=== PATIENT | female | born 1945 | race Caucasian/White ===

== ENCOUNTER 2018-11-13 07:29 | Observation (INO) | payer OTHER ==
--- NOTE | 2018-11-12 16:32 | RAD REPORT ---
EXAM DESCRIPTION: Kevin Rodrigues (2 Views)11/12/2018 4:24 pm CLINICAL HISTORY: Preop for abdominal hernia repair COMPARISON: None FINDINGS: The lungs appear clear of acute infiltrate. The heart is normal size IMPRESSION: No acute abnormalities displayed
--- OUTSIDE RECORDS SUMMARY | 2018-11-13 07:39 | XMS REPORT | Encounter Summary ---
:1945 Author Care Team Providers Name Role Phone Fletcher Reina MD Primary Care Provider [phone] Reason for Visit Follow Up Visit Instructions 1. Sinusitis 2. Deviated nasal septum 3. Hypertrophy of nasal turbinates 4. Nasal obstruction 5. Allergic rhinitis 6. Otalgia tympanogram 7. Conductive hearing loss Discussion Note: None recorded.Patient educational handouts: No information available. Plan of Care Patient Instructions Patient discharged with the following instructions per Dr. Acosta Patient is to keep the ears dry while showering no water or shampoo Along with using Vinegar or Ciprodex ear drops as directed Follow up in 4-5 months If any other problem patient is to call the office Patient verbalized understanding the instructions given along with my office nurse Radha Cardoso Provider Appointments Follow up Odell Acosta, 07/01/2018 1:30PM Lab None recorded. Referral None recorded. Procedures None recorded. Surgeries None recorded. Imaging Tympanogram In-House Results 02/11/2018 Medications Name Start Date Co Q-10 100 mg capsule Take 1 capsule every day by oral route with meals. Evening Homer 500 mg capsule Take 1 capsule every day by oral route in the morning. Fluzone High-Dose 6934-8323 (PF) 180 mcg/0.5 mL intramuscular syringe ketoconazole 2 % topical cream magnesium nabumetone 750 mg tablet olopatadine 0.2 % eye drops Pneumovax 23 25 mcg/0.5 mL injection syringe ProAir HFA 90 mcg/actuation aerosol inhaler progesterone Preogesterone SR 25 mg compounded ranitidine 150 mg tablet Restasis 0.05 % eye drops in a dropperette Shingrix (PF) 50 mcg/0.5 mL intramuscular suspension, kit Suprep Bowel Prep Kit 17.5 gram-3.13 gram-1.6 gram oral solution tizanidine 4 mg tablet triamcinolone acetonide 0.1 % topical cream turmeric (bulk) Medications Administered None recorded. Vitals Height Weight BMI Blood Pressure 5 ft 2 in 200 lbs 36.6 kg/m2 Lab Results Date Name Specimen Result Interpretation Description Value Range Status Address 02/11/2018 Tympanogram Right Type B In-House Curve Flat Results: For Internal Use Only Left Type A In-House Normal Results: For Internal Use Only Allergies Code Code System Name Reaction Severity Status Onset 29043 RxNorm Neosporin Rash Mild Active (Blb-[id number]-[id number]) Problems Name Status Onset Date Source Debris in Ear Canal Active Encounter Chronic Serous Otitis Media Active Otitis Media Active Encounter Otalgia Active Encounter Conductive Hearing Loss Active Nasal Obstruction Active Encounter Dizziness Active Encounter Choking Active Encounter Difficulty Swallowing Active Encounter Hypertrophy of Nasal Turbinates Active Encounter Procedures Date Name Performed by 12/08/2005 Ear Tube Information not available 01/30/2004 Ear Surgery Information not available 12/26/2001 ENT Surgery Information not available 02/27/1984 Hysterectomy Information not available 02/26/1965 Breast Biopsy Information not available Gastric Bypass for Obesity Information not available Cholecystectomy Information not available Appendectomy Information not available Tonsillectomy Information not available 02/11/2018 Tympanogram In-House Results For Internal Use Only 22312 Vaccine List None recorded. Social History Smoking Status Former Smoker (2 PPD) Past Encounters 02/11/2018 Sinusitis; Deviated Nasal Septum; Hypertrophy of Nasal Turbinates; Nasal Obstruction; Allergic Rhinitis; Otalgia; Conductive Hearing Loss Odell Acosta MD: [address] [place] [address], [address], [place] [address], Ph. History of Present Illness None recorded. Review of Systems ENT ROS Reported By: Patient Constitutional: Constitutional: no constitutional symptoms Eyes: Eyes: no eye symptoms ENMT: ENMT: ear pain, hearing loss, sneezing, runny nose; right ear tube in place Cardiovascular: Cardiovascular: no cardiovascular symptoms Respiratory: Respiratory: no respiratory symptoms Gastrointestinal: GI: no gastrointestinal symptoms Musculoskeletal: Musculoskeletal: no musculoskeletal symptoms Skin: Skin: no skin symptoms Neurological symptoms: Neuro: no neurological symptoms Endocrine: Endocrine: no endocrine symptoms Sleep: sleep (normal) sleep disturbances: periods of not breathing (sleep apnea) Physical Exam ENT Exam Dave Focus-No Stethoscope Reported By: Patient Ears: Right Tympanic membrane: tube is present; Ms. Mcdonough doing very well she is feeling right ear some bubbling. On clinical examination definite the ear tube is on the way out with some clear fluid in the ears. Tube in the right ear left ear tube is nice and clean and dry she also had a very bad upper respiratory infection she is getting over. Video picture was in place in the chart. Thank you. Follow up in 5 months.. Left Tympanic membrane: tube is present
--- OUTSIDE RECORDS SUMMARY | 2018-11-13 07:39 | XMS REPORT | Encounter Summary ---
:1945 Author Care Team Providers Name Role Phone Fletcher Reina MD Primary Care Provider [phone] Odell Acosta Press Tender [employer] [phone] Reason for Visit Follow Up Visit Instructions 1. Sinusitis CT, sinuses, w/o contrast - CT of the sinus without contrast 77917 Authorization #[id number] Vaild dates 11/01/2018-01/30/2019 2. Deviated nasal septum 3. Nasal obstruction 4. Hypertrophy of nasal turbinates 5. Otitis externa 6. Otalgia tympanogram 7. Conductive hearing loss 8. Allergic rhinitis Discussion Note: None recorded.Patient educational handouts: No information available. Plan of Care Reminders Provider Appointments Follow up Odell Acosta MD 11/25/2018 1:30PM Lab None recorded. Referral None recorded. Procedures None recorded. Surgeries None recorded. Imaging Tympanogram In-House Results 11/01/2018 CT, Sinuses, [facility] W/o Contrast 11/01/2018 [facility] Imaging Department Medications Name Start Date Ciprodex 0.3 %-0.1 % ear drops,suspension Instill 5 drops twice a day by otic route as directed for 7 days. Co Q-10 100 mg capsule Take 1 capsule every day by oral route with meals. Crestor 5 mg tablet Take 1 tablet every day by oral route. Evening Radom 500 mg capsule Take 1 capsule every day by oral route in the morning. Fluzone High-Dose 4968-0196 (PF) 180 mcg/0.5 mL intramuscular syringe ketoconazole 2 % topical cream magnesium nabumetone 750 mg tablet olopatadine 0.2 % eye drops ondansetron 4 mg disintegrating tablet ProAir HFA 90 mcg/actuation aerosol inhaler progesterone Preogesterone SR 25 mg compounded ranitidine 150 mg tablet Restasis 0.05 % eye drops in a dropperette tizanidine 4 mg tablet triamcinolone acetonide 0.1 % topical cream turmeric (bulk) Medications Administered None recorded. Vitals Height Weight BMI Blood Pressure 5 ft 2 in 209 lbs 38.2 kg/m2 107/71 mm[Hg] Lab Results None recorded. Allergies Code Code System Name Reaction Severity Status Onset 82703 RxNorm Neosporin Rash Mild Active ([id number]) Problems Name Status Onset Date Source Debris [...] Information not available Tonsillectomy Information not available 11/01/2018 Tympanogram In-House Results For Internal Use Only 22797 11/01/2018 CT, Sinuses, W/o Contrast [facility] Imaging Department [address] [place] [address] (Work [address]) Vaccine List None recorded. Social History Tobacco Smoking Status Former Smoker (2 PPD) Past Encounters 11/01/2018 Sinusitis; Deviated Nasal Septum; Nasal Obstruction; Hypertrophy of Nasal Turbinates; Otitis Externa; Otalgia; Conductive Hearing Loss; Allergic Rhinitis Odell Acosta MD: [address] [place] [address], [address], [place] [address], Ph. History of Present Illness Review of Systems: ROS as noted in the HPI Review of Systems ENT ROS Reported By: Patient Constitutional: Constitutional: no constitutional symptoms Eyes: Eyes: no eye symptoms ENMT: ENMT: sinus pressure, swelling, runny nose Physical Exam ENT Exam Dave Focus-No Stethoscope Reported By: Patient Ears: Right Tympanic membrane: tube is present; Ms. Mcdonough doing very well she is feeling right ear bubbling. On clinical examination definite the ear tube is on the way out with some clear fluid in the ears. Tube in the right ear and left ear tube is nice and clean and dry. She also had a very bad upper respiratory infection she is getting over.Video picture was in place in the chart. Thank you. Follow up in 5 months. Left Tympanic membrane: tube is present
--- OUTSIDE RECORDS SUMMARY | 2018-11-13 07:39 | XMS REPORT | Summary of Care ---
:1945 Author Organization [facility] - Health Address [address] [place] [address] Care Team Providers Name Role Phone Elinor Reina MD Primary Care Provider Encounter Details Date Type Department Care Team Description 11/12/2018 Orders Only [facility] Doctor Unassigned, No [address] [facility] Name [place] [phone] [place] [phone] Allergies No Known Allergiesdocumented as of this encounter (statuses as of 11/12/2018) Medications Not on filedocumented as of this encounter (statuses as of 11/12/2018) Active Problems Not on filedocumented as of this encounter (statuses as of 11/12/2018) Social History Tobacco Use Types Packs/Day Years Used Date Never Assessed Sex Assigned at Date Recorded Not on file Job Start Date Occupation Industry Not on file Not on file Not on file Travel History Travel Start Travel End No recent travel history available. documented as of this encounter Last Filed Vital Signs Not on filedocumented in this encounter Plan of Treatment Health Maintenance Due Date Last Done Comments HEPATITIS C (HCV) SCREEN 1945 DTaP,Tdap,and Td Vaccines (1 - 08/02/1963 Tdap) COLONOSCOPY 1994 Zoster Recombinant Vaccine 1994 (SHINGRIX) (1 of 2) Medicare Wellness Visit 2009 PNEUMOCOCCAL VACCINES 65+ (1 of 2 2009 - PCV13) INFLUENZA VACCINE (#1) 2018 MAMMOGRAM 06/06/2019 06/05/2018, 06/05/2017, 03/15/2016, Additional history exists Osteoporosis Screening Completed 09/27/2016, 09/27/2015 documented as of this encounter Procedures Procedure Name Priority Date/Time Associated Diagnosis Comments NO SHOW OR MISSED Routine 11/12/2018 9:16 AM APPOINTMENT POLICY CDT ACKNOWLEDGEMENT documented in this encounter Results Not on filedocumented in this encounter Insurance Payer Benefit Plan Subscriber ID Effective Phone Address Type / Group Dates AETNA - AETNA [id number] 2013-[place] Medicare Adv MANAGED MEDICARE [place]V nt [id number] [place] [address] documented as of this encounter
--- OUTSIDE RECORDS SUMMARY | 2018-11-13 07:39 | XMS REPORT ---
:1945 Author Organization [facility] Address [address] [place] [address] Dr. [address] [place] [address] Care Team Providers Name Role Phone Unavailable Unavailable Unavailable Problems This patient has no known problems. Allergies, Adverse Reactions, Alerts This patient has no known allergies or adverse reactions. Medications This patient has no known medications.
--- OUTSIDE RECORDS SUMMARY | 2018-11-13 07:39 | XMS REPORT | Summary of Care ---
:1945 Author Organization [facility] Address [address] [place] [address] Care Team Providers Name Role Phone Elinor Reina MD Primary Care Provider Reason for Referral MRI/CAT Scan (Routine) Status Reason Specialty Diagnoses / Referred By Referred To Procedures Contact Contact Closed Diagnostic Diagnoses Chronic sinusitis, unspecified location Raju, Palivela Radiology Procedures CT SINUS WO CONTRAST MD Jona [address] [facility] [address] [place] [address] MRI/CAT Scan (Routine) Status Reason Specialty Diagnoses / Referred By Referred To Procedures Contact Contact Closed Diagnostic Diagnoses Chronic sinusitis, unspecified location Raju, Palivela Radiology Procedures CT SINUS WO [facility]AST MD Jona [facility] [address] [place] [address] Reason for Visit MRI/CAT Scan (Routine) Status Reason Specialty Diagnoses / Referred By Referred To Procedures Contact Contact Closed Diagnostic Diagnoses Chronic sinusitis, unspecified location Raju, Palivela Radiology Procedures CT SINUS WO CONTRAST MD Jona [address] [facility] [address] [place] [address] Encounter Details Date Type Department Care Team Description 11/12/2018 Hospital Encounter [facility] Radiology Arrived Clarissa Computed [address] [facility] [place] [address] [place] [address] Allergies No Known Allergiesdocumented as of this encounter (statuses as of 11/13/2018) Medications Not on filedocumented as of this encounter (statuses as of 11/13/2018) Active Problems Not on filedocumented as of this encounter (statuses as of 11/13/2018) Social History Tobacco Use Types Packs/Day Years [...] Procedure Name Priority Date/Time Associated Diagnosis Comments CT SINUS WO Routine 11/12/2018 10:22 AM Chronic sinusitis, Results for this CONTRAST CDT unspecified location procedure are in the results section. documented in this encounter Results CT SINUS WO CONTRAST (11/12/2018 10:22 AM CDT) Specimen Narrative Performed At HISTORY: Chronic sinusitis. PACS/VR/DOSE TECHNIQUE: 64-multidetector Spiral CT scan of sinuses was completed in axial projection and subsequently multiple sagittal/coronal reformations were generated. FINDINGS: Comparison is made with 01/25/2017 study. Left sphenoid sinus showed changes of acute as well as chronic sinusitis. Minimal mucosal thickening is seen in the right maxillary sinus.. NASAL AIRWAYS: Evidence of prior surgery noted with resection of portions of inferior turbinates, medial wall of the right and left maxillary antra with large drainage windows created for both maxillary sinuses. Mucosal thickening is seen along the upper nasal septum and adjacent left superior turbinate. No gross pathology is seen in the temporal bone anatomy. Note made of bilateral hyperostosis frontalis interna. CONCLUSIONS: 1. Mild acute on chronic left sphenoid sinusitis and minimal chronic right sphenoid sinusitis. 2. Mucosal thickening noted along left side of upper nasal septum and adjacent left superior turbinate. Procedure Note [facility], Radiant Results Inft User - 11/12/2018 10:31 AM CDT HISTORY: Chronic sinusitis. TECHNIQUE: 64-multidetector Spiral CT scan of sinuses was completed in axial projection and subsequently multiple sagittal/coronal reformations were generated. FINDINGS: Comparison is made with 01/25/2017 study. Left sphenoid sinus showed changes of acute as well as chronic sinusitis. Minimal mucosal thickening is seen in the right maxillary sinus.. NASAL AIRWAYS: Evidence of prior surgery noted with resection of portions of inferior turbinates, medial wall of the right and left maxillary antra with large drainage windows created for both maxillary sinuses. Mucosal thickening is seen along the upper nasal septum and adjacent left superior turbinate. No gross pathology is seen in the temporal bone anatomy. Note made of bilateral hyperostosis frontalis interna. CONCLUSIONS: 1. Mild acute on chronic left sphenoid sinusitis and minimal chronic right sphenoid sinusitis. 2. Mucosal thickening noted along left side of upper nasal septum and adjacent left superior turbinate. Performing Organization Address City/State/Zipcode Phone Number PACS/VR/DOSE documented in this encounter Visit Diagnoses Diagnosis Chronic sinusitis, unspecified location documented in this encounter Insurance Payer Benefit Plan Subscriber ID Effective Phone Address Type / Group Dates AETNA - AETNA [id number] 2013-e [address] Medicare Adv MANAGED MEDICARE ADV nt [id number] [place] [address] ([place]) [place] [address] documented as of this encounter
--- OUTSIDE RECORDS SUMMARY | 2018-11-13 07:39 | XMS REPORT | Encounter Summary ---
:1945 Author Care Team Providers Name Role Phone Fletcher Reina MD Primary Care Provider [phone] Reason for Visit Follow Up Visit Instructions 1. Otitis externa Ciprodex 0.3 %-0.1 % ear drops,suspension 2. Otalgia 3. Conductive hearing loss 4. Sinusitis 5. Deviated nasal septum 6. Hypertrophy of nasal turbinates 7. Nasal obstruction 8. Allergic rhinitis Discussion Note: None recorded.Patient [...] the instructions given along with my office Reminders Provider Appointments Follow up 11/01/2018 Odell Acosta MD 10:00AM Lab None recorded. Referral None recorded. Procedures None recorded. Surgeries None recorded. Imaging None recorded. Medications Name Start Date Ciprodex 0.3 %-0.1 % ear drops,suspension Instill 5 drops twice a day by otic route as directed for 7 days. Co Q-10 100 mg capsule Take 1 capsule every day by oral route with meals. Evening [place] 500 mg capsule Take 1 capsule every day by oral route in the morning. Fluzone High-Dose [id number] (PF) 180 mcg/0.5 mL intramuscular syringe ketoconazole [...] BMI Blood Pressure 5 ft 2 in 208.4 lbs 38.1 kg/m2 132/74 mm[Hg] Lab Results None recorded. Allergies Code Code System Name Reaction Severity Status Onset 62447 RxNorm Neosporin Rash Mild Active ([id number]) Problems Name Status Onset Date Source Debris [...] Information not available Tonsillectomy Information not available Vaccine List None recorded. Social History Smoking Status Former Smoker (2 PPD) Past Encounters 07/01/2018 Otitis Externa; Otalgia; Conductive Hearing Loss; Sinusitis; Deviated Nasal Septum; Hypertrophy of Nasal Turbinates; Nasal Obstruction; Allergic Rhinitis Odell Acosta MD: [address] [place] [address], [address], [place] [address], Ph. History of Present Illness None recorded. Review of Systems ENT ROS Reported By: Patient ENMT: ENMT: ear pain, hearing loss, sinus pressure, runny nose Physical Exam None recorded.
[2018-11-13] MEDS ORDERED: Ringers Lactate 1,000 ML IV ONE ×2 (07:48→09:53)
[2018-11-13] MEDS ORDERED: CEFAZOLIN/SWI 1gm 1 GM/10 ML SYR ONE (07:48)
[2018-11-13] MEDS ORDERED: FENTANYL CITR 100 MCG/2 ML ONE (08:12)
[2018-11-13] MEDS ORDERED: ROCURONIUM 50 MG/5 ML VIAL IV ONE ×2 (08:12→10:07)
[2018-11-13] MEDS ORDERED: PROPOFOL 200 MG/20 ML VIAL IV ONE (08:12)
[2018-11-13] MEDS ORDERED: LIDOCAINE 2% MPF 5 ML VIAL ONE (08:13)
[2018-11-13] MEDS ORDERED: MIDAZOLAM HCL 2 MG/2 ML INJ ONE (08:13)
[2018-11-13] MEDS ORDERED: GLYCOPYRROLATE 0.2 MG/ML SYR ONE ×2 (09:01)
[2018-11-13] MEDS ORDERED: NS 0.9% VIAL 30 ML ONE (09:03)
[2018-11-13] MEDS ORDERED: EPHEDRINE SULF 50 MG/ML VIAL ONE (09:03)
[2018-11-13] MEDS ORDERED: MORPHINE 10 MG/ML VIAL ONE (10:08)
[2018-11-13] MEDS ORDERED: NEOSTIGMINE 1 MG/ML -10 ML VIAL ONE (11:01)
[2018-11-13] MEDS ORDERED: SODIUM CHLORIDE 0.9% 10ML INJ IV PRN (11:06)
[2018-11-13] MEDS ORDERED: ONDANSETRON 4 MG/2 ML VIAL IV PRN ×2 (11:06→20:14)
[2018-11-13] MEDS: HYDROMORPHONE HCL 1 MG/ML INJ IV PRN ×4 (11:20→20:32)
--- NOTE | 2018-11-13 11:21 | P.BOP ---
Preoperative diagnosis: abd pain, colon incarcerated incisional multiple ventral hernias Postoperative diagnosis: extensive intrabdominal adhesions Primary procedure: Exploratory laparotomy, Extensive lysis of adhesions Secondary procedure: open repair incarcerated incisional multiple ventral hernias with mesh Other procedure(s): lap assisted Grain Trimmer: Lakisha Tabares (Yulia) Estimated blood loss: <50cc Specimen: hernia sac Findings: see dictation Anesthesia: General Complications: None Transferred to: Recovery Room Condition: Good
[2018-11-13] MEDS: HYDROMORPHONE HCL 2 MG/ML inj ONE ×4 (11:33→11:55)
[2018-11-13] MEDS: MORPHINE 4 MG/ML SYR ONE ×2 (12:15→12:23)
[2018-11-13] MEDS: NA CHLORIDE 0.9% 1,000 ML IV SCH (12:20)
[2018-11-13] MEDS: CEFOXITIN/SWI 1gm 1 GM/10 ML SYR IV SCH ×2 (13:49→18:24)
[2018-11-13 14:03] VITALS: BMI 34.7
[2018-11-14] MEDS: HYDROCODONE/APAP 5/325 MG TAB PO PRN ×4 (01:33→20:38)
[2018-11-14] MEDS: CEFOXITIN/SWI 1gm 1 GM/10 ML SYR IV SCH (01:34)
[2018-11-14] MEDS: NA CHLORIDE 0.9% 1,000 ML IV SCH ×2 (01:34→16:13)
[2018-11-14 04:48] LABS: RBC Red Blood Cell Count 4.48 M/uL (3.86-4.86)
[2018-11-14 04:49] LABS: BUN Blood Urea Nitrogen 10 mg/dL (7-18); Bicarbonate 29 mmol/L (21-32); Glucose Level 133 mg/dL (74-106); Sodium Level 145 mmol/L (136-145)
[2018-11-14 05:17] LABS: Absolute Lymphocytes (CBC) 0.7 K/uL (0.7-4.9); Basophils % 0.1 % (0-1.3); Hematocrit 39.8 % (36.0-45.0); Lymphocytes % 8.1 % (15.3-44.8); MPV 8.5 fL (7.6-11.3)
[2018-11-14 06:00] LABS: Urine Appearance CLEAR; Urine Bilirubin NEGATIVE (NEG); Urine Blood NEGATIVE (NEG); Urine Color YELLOW; Urine Glucose NEGATIVE (NEG); Urine Protein NEGATIVE (NEG); Urine Specific Gravity 1.025 (1.005-1.030); Urine Urobilinogen 0.2 mg/dL (0.2-1.0); Urine pH 5.5 (5.0-7.0)
[2018-11-14 06:05] LABS: Urine Microscopic Reflex NO UMIC
[2018-11-14] MEDS: HYDROMORPHONE HCL 1 MG/ML INJ IV PRN (08:27)
[2018-11-14] MEDS: PANTOPRAZOLE 40 MG INJ IVP SCH (08:28)
[2018-11-14 23:30] VITALS: O2SAT 98
[2018-11-15] MEDS: HYDROCODONE/APAP 5/325 MG TAB PO PRN ×3 (00:28→11:11)
[2018-11-15] MEDS: NA CHLORIDE 0.9% 1,000 ML IV SCH (01:25)
--- NOTE | 2018-11-15 03:25 | PN ---
Date of Progress Note: 11/14/2018 Diagnosis: Incarcerated multiple incisional ventral hernias with extensive lysis of adhesions, statu s post laparotomy, repair of multiple extensive ventral hernias, incisional, incarcerated with mesh. Subjective: The patient is improving. No fever. No shortness of breath. No chest pain. Still req uiring IV medication for pain control. Today, we started with a clear liquid diet. She is going to try that today. Objective: Chest: Clear. Abdomen: Soft and depressible. Bowel sounds diminished. Extremities: Good capillary refill. Laboratory Data: Blood work shows WBC count of 8.9, hemoglobin of 13.4. Chloride is 109. Plan: We are going to advance diet. We explained the patient the options of taking pain medication p.o., although she is still requiring both. If she improves and clinically if she improves overnight and she is able to tolerate diet and also able to be weaned to medication by mouth, then she will be discharged tomorrow. MIGUEL/DREA Voice ID: [id number] Report ID: [id number]
[2018-11-15] MEDS: PANTOPRAZOLE 40 MG INJ IVP SCH (08:12)
[2018-11-15 12:01] VITALS: BP 140/65; TEMP 97.8
== END 2018-11-15 13:25 | disposition home or self-care (01) ==
LOC: OR 07:29 → 4TH 12:24 → OR 11-14 14:53 → 4TH 11-14 14:54
PROVIDERS: ADMIT Surgery; ATTEND Surgery
PROC: 0WUF0JZ Supplement Abdominal Wall with Synthetic Substitute, Open Approach (ICD-10-PCS; 2018-11-13)
PROC: 0DNE4ZZ Release Large Intestine, Percutaneous Endoscopic Approach (ICD-10-PCS; principal; 2018-11-13 08:45)
DX: K43.6 Other and unspecified ventral hernia with obstruction, without gangrene (principal); K66.0 Peritoneal adhesions (postprocedural) (postinfection)
CPT/HCPCS: 36415; 71046; 80048; 81003; 85025; 88302; 97116; 97161; 97530; C9113; G0378; J0690; J1170; J2250; J2405; J2704; J2710; J3010; J7030

== ENCOUNTER 2019-02-10 09:24 | Day surgery (SDC) | payer OTHER ==
[2019-02-06 11:18] LABS: BUN Blood Urea Nitrogen 14 mg/dL (7-18); Bicarbonate 33 mmol/L (21-32); Glucose Level 95 mg/dL (74-106); Potassium 4.1 mmol/L (3.5-5.1); Sodium Level 142 mmol/L (136-145)
[2019-02-06 11:45] LABS: Absolute Lymphocytes (CBC) 1.4 K/uL (0.7-4.9); Basophils % 0.4 % (0-1.3); Hematocrit 44.6 % (36.0-45.0); Lymphocytes % 24.8 % (15.3-44.8); MPV 8.5 fL (7.6-11.3); RBC Red Blood Cell Count 5.12 M/uL (3.86-4.86)
--- NOTE | 2019-02-06 14:56 | EKG ---
Test Date: 2019-02-06 Test Time: 10:36:40 Court Clerk: QUINCY MEASUREMENT RESULTS: Intervals: Rate: 54 [place]: 176 QRSD: 70 QT: 440 QTc: 417 [place]: P: 41 [place]: 176 QRS: 8 T: 27 INTERPRETIVE STATEMENTS: Sinus bradycardia with sinus arrhythmia Otherwise normal ECG No previous ECG available for comparison Electronically Signed On 02-06-19 14:55:02 BACKUP ENGINEER by Peewee Grubbs
--- OUTSIDE RECORDS SUMMARY | 2019-02-10 09:27 | XMS REPORT | Encounter Summary ---
:1945 Author Care Team Providers Name Role Phone Fletcher Reina MD Primary Care Provider [phone] Evi Dos Santos MD Nurses' Registry Director [phone] Odlel Acosta Rn Medical Surgical [phone] Reason for Visit Follow Up Results Instructions 1. Sinusitis 2. Deviated nasal septum 3. Nasal obstruction 4. Hypertrophy of nasal turbinates 5. Conductive hearing loss 6. Tinnitus tympanogram 7. Allergic rhinitis Discussion Note: None recorded.Patient educational handouts: No information available. Plan of Care Patient Instructions Patient discharged with the following instructions per Dr. Acosta Patient is to use the nasal irrigation and nasogel in each nostril bid for 1-2 months Follow up in 6 months If any other problem patient is to call the office Patient verbalized understanding the instructions given along with my office Reminders Provider Appointments Follow up Odell Acosta, 05/21/2019 9:30AM Lab None recorded. Referral None recorded. Procedures None recorded. Surgeries None recorded. Imaging Tympanogram In-House Results 11/25/2018 Medications Name Start Date Ciprodex 0.3 %-0.1 % ear drops,suspension Instill 5 drops twice a day by otic route as directed for 7 days. Co Q-10 100 mg capsule Take 1 capsule every day by oral route with meals. Crestor 5 mg tablet Take 1 tablet every day by oral route. Evening [place] 500 mg capsule Take 1 capsule every day by oral route in the morning. Fluzone High-Dose [id number] (PF) 180 mcg/0.5 mL intramuscular syringe magnesium nabumetone 750 mg tablet olopatadine 0.2 % eye drops ondansetron 4 mg disintegrating tablet ProAir HFA 90 mcg/actuation aerosol inhaler progesterone Preogesterone SR 25 mg compounded ranitidine 150 mg tablet Restasis 0.05 % eye drops in a dropperette tizanidine 4 mg tablet turmeric (bulk) Medications Administered None recorded. Vitals Height Weight BMI Blood Pressure 5 ft 2 in 191.3 lbs 35 kg/m2 134/84 mm[Hg] Lab Results Date Name Specimen Result Interpretation Description Value Range Status Address 11/25/2018 Tympanogram Left Type C In-House Peak is Results: For on Left Internal Use Only 11/01/2018 Tympanogram Left Type C In-House Peak is Results: For on Left Internal Use Only Allergies Code Code System Name Reaction Severity Status Onset 7299 RxNorm Neomycin Rash Mild to Active Moderate 52083 RxNorm Neosporin Rash Mild Active ([id number]) Problems Name Status Onset Date Source Debris [...] Tympanogram In-House Results For Internal Use Only 13777 11/01/2018 CT, Sinuses, W/o Contrast [facility] Imaging Department [address] [place] [address] [place] [address] ([address]) 11/25/2018 Tympanogram In-House Results For Internal Use Only [address]78[address] Vaccine List None recorded. Social History Tobacco Smoking Status Former Smoker (2 PPD) Past Encounters 11/25/2018 Sinusitis; Deviated Nasal Septum; Nasal Obstruction; Hypertrophy of Nasal Turbinates; Conductive Hearing Loss; Tinnitus; Allergic Rhinitis Odell Acosta MD: [address], [address], [place] [address], Ph. 11/01/2018 Sinusitis; Deviated Nasal Septum; Nasal Obstruction; Hypertrophy of Nasal Turbinates; Otitis Externa; Otalgia; Conductive Hearing Loss; Allergic Rhinitis Odell Acosta MD: [address], [address], [place] [address], Ph. History of Present Illness Review of Systems: ROS as noted in the HPI Review of Systems ENT ROS Reported By: Patient Constitutional: Constitutional: no constitutional symptoms Eyes: Eyes: no eye symptoms ENMT: ENMT: sinus pressure, swelling, runny nose Physical Exam ENT Exam [facility] Focus-No Stethoscope Reported By: Patient
--- OUTSIDE RECORDS SUMMARY | 2019-02-10 09:27 | XMS REPORT ---
:1945 Author Organization [facility] Address [address] [place] [address] Dr. Curtis [address] [place] [id number] Care Team Providers Name Role Phone Unavailable Unavailable Unavailable Problems This patient has no known problems. Allergies, Adverse Reactions, Alerts This patient has no known allergies or adverse reactions. Medications This patient has no known medications.
[2019-02-10] MEDS ORDERED: CEFAZOLIN/SWI 1gm 1 GM/10 ML SYR ONE (10:15)
[2019-02-10] MEDS ORDERED: Ringers Lactate 1,000 ML IV ONE (10:15)
[2019-02-10] MEDS ORDERED: LIDOCAINE 1% MPF 5 ML VIAL ONE (10:23)
[2019-02-10] MEDS ORDERED: FENTANYL CITR 100 MCG/2 ML ONE (10:23)
[2019-02-10] MEDS ORDERED: propofoL 200 MG/20 ML VIAL IV ONE (10:23)
[2019-02-10] MEDS ORDERED: KETOROLAC 30 MG/ML INJ ONE (10:51)
[2019-02-10] MEDS ORDERED: ONDANSETRON 4 MG/2 ML VIAL ONE (10:54)
--- NOTE | 2019-02-10 11:27 | P.BOP ---
Preoperative diagnosis: tender erythematous back subcutaneous mass Postoperative diagnosis: same Primary procedure: Wide excision of tender erythematous back subcutaneous mass 3.5 x 5.4 cm Special Police: JOLIE LEMONS (mental health consultant) Estimated blood loss: <10cc Specimen: mass Findings: deep back subQ mass erythematous today, adhered to fascia but muscle intact Anesthesia: General Complications: None Transferred to: Recovery Room Condition: Good
[2019-02-10] MEDS ORDERED: CODEINE 30MG/APAP 300MG TAB ONE (12:36)
[2019-02-10 14:26] VITALS: BP 147/77; TEMP 97.5; O2SAT 97
--- NOTE | 2019-02-13 04:33 | OP ---
Surgeon: Butch Velásquez MD Nicker And Breaker: Joslyn Anne. Preoperative Diagnosis: Tender erythematous back subcutaneous mass. Postoperative Diagnosis: Tender erythematous back subcutaneous mass. Procedure: Wide excision of tender erythematous back subcutaneous mass 3.5 x 5.4 cm. Estimated Blood Loss: Less than 10 mL. Finding: Deep back subcutaneous mass, erythematosus. That mass is adhered to fascia but muscle seem s to be intact. Indications: This is the case of a 73-year-old patient, comes with a mass that is erythematosus and is giving her pain and discomfort. The benefits, alternatives, and risks of excision fully explained to the patient, which include but are not limited to infection, bleeding, damage to adjacent structu res, anesthesia complication, nonhealing wound, [place], and even . She also understands this may no t relieve the symptoms. She might need more than one surgical intervention. She understood, signed a consent. Description Of Procedure: Patient was brought to the operating room, placed in supine position. Ane sthesia was done without complication. Patient was placed in lateral decubitus position with proper protection. A time-out was called. The back was prepped and draped in a sterile fashion. An incisi on was made in the skin. Incision was carried down to deep subcutaneous tissue. We noticed this mas s present and is attached to the fascia of the muscle. So, we brought the mass and the fascia of the muscle together and irrigate the area. We then proceeded to close this in layers. We used the wafer substrate tester shannon all the way to the more superficial layers and the skin. Irrigation was done before closure. He mostasis was obtained before closure. A specimen was sent to the pathologist. The area was covered with sterile dressings. Patient tolerated the procedure well. Patient was sent to recovery in stable con dition. MIGUEL/DREA Voice ID: [id number] Report ID: [id number]
--- NOTE | 2019-02-13 04:36 | DS ---
Date of Discharge: 02/10/2019 Diagnosis: Tender upper back subcutaneous mass. Procedure: Excision and biopsy of tender back subcutaneous mass. Disposition: Home. Activity: As tolerated. No heavy lifting. Followup: Follow up in my office in 1 week. Call for appointment at [phone]. Instructions: Keep area dry for 48 hours, then may shower. Medications: See orders. MIGUEL/DREA Voice ID: [id number] Report ID: [id number]
== END 2019-02-10 12:54 | disposition home or self-care (01) ==
LOC: OR 09:24
PROVIDERS: ATTEND Surgery
PROC: 0JB70ZZ Excision of Back Subcutaneous Tissue and Fascia, Open Approach (ICD-10-PCS; principal; 2019-02-10 11:45)
DX: L72.0 Epidermal cyst (principal); E07.9 Disorder of thyroid, unspecified; Z87.891 Personal history of nicotine dependence; Z88.3 Allergy status to other anti-infective agents; Z98.84 Bariatric surgery status; Z80.1 Family history of malignant neoplasm of trachea, bronchus and lung; Z82.49 Family history of ischemic heart disease and other diseases of the circulatory system
CPT/HCPCS: 93005; 85025; 80048; 36415; 88304; 11404; J2704; J3010; J0690; J7120; J2405